=== PATIENT | male | born 1950 ===

== ENCOUNTER 2017-05-08 15:22 | Emergency (ER) | payer OTHER ==
[2017-05-08 15:22] VITALS: BMI 25.8
[2017-05-08 15:31] VITALS: BP 152/79; PULSE 70; RESP 18; TEMP 97; O2SAT 98
[2017-05-08] MEDS ORDERED: Naproxen 500 MG TAB PO STA (16:11)
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
[2017-05-08] MEDS ORDERED: Naproxen 500 MG TAB PO ONE (16:49)
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
== END 2017-05-08 17:56 | disposition home or self-care (01) ==
LOC: H.ER 15:22
DX: M54.9 Dorsalgia, unspecified (principal); W19.XXXA Unspecified fall, initial encounter; Y99.0 Civilian activity done for income or pay; I10 Essential (primary) hypertension; M41.9 Scoliosis, unspecified; Z88.0 Allergy status to penicillin